=== PATIENT | female | born 1980 | race Caucasian/White ===

== ENCOUNTER 2020-09-07 02:53 | Emergency (ER) | payer MEDICAID ==
--- NOTE | 2020-09-07 03:10 | EDM.PDOC ---
<Lex Dennison - Last Filed: 09/07/20 04:33> ED HPI GENERAL MEDICAL PROBLEM - General Stated Complaint: MEDICAL [facility]IA [facility] Time Seen by Provider: 09/07/20 02:56 Source of Information: Reports: EMS History Limitations: Reports: Altered Mental Status, Intoxication - History of Present Illness INITIAL COMMENTS - FREE TEXT/NARRATIVE: Mary Beth is a 40-year-old female who was brought in by EMS for altered mental status and acute intoxication. Details are quite sketchy, however, it appears that the patient was found on the sidewalk outside of the hospital where somebody had found her and called law enforcement. Law enforcement in turn called EMS to bring her to the hospital. The patient admits to heavy alcohol use today but will not state what she has been drinking. She will not answer questions. She presents tachycardic and her altered state. Law enforcement did provide a name, birthdate, and address for the patient. No one else is accompanying her at this time. Left Abdomen Pain Score (Numeric/FACES): 4 - Related Data Allergies Allergy/AdvReac Type Severity Reaction Status Date / Time No Known Allergies Allergy Verified 09/07/20 03:04 Home Meds: Home Meds Cholecalciferol (Vitamin D3) [Vitamin D3] 2,000 unit PO DAILY 09/07/20 [History] Naltrexone 25 mg PO BID 09/07/20 [History] buPROPion HCL [Wellbutrin Xl] 300 mg PO DAILY 09/07/20 [History] ED ROS GENERAL - Review of Systems Review Of Systems: Unable To Obtain Reason Not Obtained: Patient is intoxicated and refuses to answer questions : Reports: Flank Pain (Left flank pain) - Physical Exam Exam: See Below Text/Narrative:: Patient repeatedly Stating she did not want to be touched came agitated when I approached to examine her. I was able to listen the heart and lungs. She has complained of left flank pain but no bruising was noticed. She does have mild tenderness to palpation of the left lower quadrant but no guarding. Exam Limited By: Intoxication General Appearance: Anxious, Mild Distress Eye Exam: Bilateral Eye: EOMI, PERRL Throat/Mouth: Normal Inspection, Normal Oropharynx, No Airway Compromise Head Exam: Atraumatic, Normocephalic Neck: Normal Inspection Respiratory/Chest: No Respiratory Distress, Lungs Clear, Normal Breath Sounds Cardiovascular: Normal Peripheral Pulses, Regular Rate, Rhythm, Tachycardia GI/Abdominal: Normal Bowel Sounds, Soft, Tender (Left lower quadrant tenderness). No: Guarding, Rigid, Rebound Neuro Exam (Abbreviated): Alert, No Motor/Sensory Deficits Extremities: Normal Inspection Psychiatric: Anxious, Tearful Skin Exam: Warm, Dry, Intact, Normal Color Course - Re-Assessments/Exams Free Text/Narrative Re-Assessment/Exam: 09/07/20 04:33 I reviewed the patient's labs showing a normal CBC and comprehensive metabolic profile. Her urinalysis is negative. Her urine drug screen is negative. Her ethanol level is 444. As there is no sober individual that is able to care for her we will have to watch her until she is sober later this morning and then she can be discharged back to her own care. 09/07/20 07:00 care of the patient will be turned over from Dr. Dennison to Dr. Acosta while awaiting for the patient to sober up at which point she can be discharged to her own self-care. Departure - Departure Disposition: Home, Self-Care 01 Clinical Impression: Alcohol intoxication Qualifiers: Complication of substance-induced condition: uncomplicated Qualified Code(s): F10.920 - Alcohol use, unspecified with intoxication, uncomplicated - Discharge Information Instructions: Binge-Drinking Information, Adult Referrals: PCP,None [Primary Care Provider] - Additional Instructions: Follow-up with your primary care as needed Sepsis Event Note (ED) - Evaluation Sepsis Screening Result: No Definite Risk <Juan M Acosta - Last Filed: 09/07/20 11:13> Course - Vital Signs Last Recorded V/S: Last Vital Signs Temp 97.3 F 09/07/20 02:59 Pulse 119 H 09/07/20 07:46 Resp 18 09/07/20 02:59 BP 118/77 09/07/20 07:46 Pulse Ox 95 09/07/20 07:46 - Orders/Labs/Meds Labs: Laboratory Tests 09/07/20 09/07/20 09/07/20 Range/Units 03:05 03:05 03:05 WBC 9.2 (4.5-11.0) K/uL RBC 4.47 (3.30-5.50) M/uL Hgb 14.1 (12.0-15.0) g/dL Hct 41.7 (36.0-48.0) % MCV 93 (80-98) fL MCH 32 H (27-31) pg MCHC 34 (32-36) % Plt Count 273 (150-400) K/uL Neut % (Auto) 57 (36-66) % Lymph % (Auto) 33 (24-44) % [place] % (Auto) 8 H (2-6) % Eos % (Auto) 1 L (2-4) % Baso % (Auto) 1 (0-1) % Sodium 144 (140-148) mmol/L Potassium 3.7 (3.6-5.2) mmol/L Chloride 104 (100-108) mmol/L Carbon Dioxide 25 (21-32) mmol/L Anion Gap 15.3 H (5.0-14.0) mmol/L BUN 8 (7-18) mg/dL Creatinine 0.7 (0.6-1.0) mg/dL Est Cr Clr Drug Dosing TNP Estimated GFR (MDRD) > 60 (>60) Glucose 96 (74-106) mg/dL Calcium 8.9 (8.5-10.1) mg/dL Total Bilirubin 0.3 (0.2-1.0) mg/dL AST 102 H (15-37) U/L ALT 75 (12-78) U/L Alkaline Phosphatase 119 H (46-116) U/L Total Protein 8.3 H (6.4-8.2) g/dL Albumin 3.9 (3.4-5.0) g/dL Globulin 4.4 H (2.3-3.5) g/dL Albumin/Globulin Ratio 0.9 L (1.2-2.2) Urine Color (YELLOW) Urine Appearance (CLEAR) Urine pH (5.0-8.0) Ur Specific [place] (1.008-1.030) Urine Protein (NEGATIVE) mg/dL Urine Glucose (UA) (NEGATIVE) mg/dL Urine Ketones (NEGATIVE) mg/dL Urine Occult Blood (NEGATIVE) Urine Nitrite (NEGATIVE) Urine Bilirubin (NEGATIVE) Urine Urobilinogen (0.2-1.0) EU/dL Ur Leukocyte Esterase (NEGATIVE) Urine RBC (0-5) Urine WBC (0-5) Ur Epithelial Cells Amorphous Sediment Urine Bacteria Urine Mucus Urine Opiates Screen (NEGATIVE) Ur Oxycodone Screen (NEGATIVE) Urine Methadone Screen (NEGATIVE) Ur Propoxyphene Screen (NEGATIVE) Ur Barbiturates Screen (NEGATIVE) Ur Tricyclics Screen (NEGATIVE) Ur Phencyclidine Scrn (NEGATIVE) Ur Amphetamine Screen (NEGATIVE) U Methamphetamines Scrn (NEGATIVE) Urine MDMA Screen (NEGATIVE) U Benzodiazepines Scrn (NEGATIVE) U Cocaine Metab Screen (NEGATIVE) U Marijuana (THC) Screen (NEGATIVE) Ethyl Alcohol 444 mg/dL 09/07/20 09/07/20 Range/Units 03:33 03:33 WBC (4.5-11.0) K/uL RBC (3.30-5.50) M/uL Hgb (12.0-15.0) g/dL Hct (36.0-48.0) % MCV (80-98) fL MCH (27-31) pg MCHC (32-36) % Plt Count (150-400) K/uL Neut % (Auto) (36-66) % Lymph % (Auto) (24-44) % [place] % (Auto) (2-6) % Eos % (Auto) (2-4) % Baso % (Auto) (0-1) % Sodium (140-148) mmol/L Potassium (3.6-5.2) mmol/L Chloride (100-108) mmol/L Carbon Dioxide (21-32) mmol/L Anion Gap (5.0-14.0) mmol/L BUN (7-18) mg/dL Creatinine (0.6-1.0) mg/dL Est Cr Clr Drug Dosing Estimated GFR (MDRD) (>60) Glucose (74-106) mg/dL Calcium (8.5-10.1) mg/dL Total Bilirubin (0.2-1.0) mg/dL AST (15-37) U/L ALT (12-78) U/L Alkaline Phosphatase (46-116) U/L Total Protein (6.4-8.2) g/dL Albumin (3.4-5.0) g/dL Globulin (2.3-3.5) g/dL Albumin/Globulin Ratio (1.2-2.2) Urine Color Yellow (YELLOW) Urine Appearance Clear (CLEAR) Urine pH 7.0 (5.0-8.0) Ur Specific [place] 1.010 (1.008-1.030) Urine Protein Negative (NEGATIVE) mg/dL Urine Glucose (UA) Negative (NEGATIVE) mg/dL Urine Ketones Negative (NEGATIVE) mg/dL Urine Occult Blood Negative (NEGATIVE) Urine Nitrite Negative (NEGATIVE) Urine Bilirubin Negative (NEGATIVE) Urine Urobilinogen 0.2 (0.2-1.0) EU/dL Ur Leukocyte Esterase Trace H (NEGATIVE) Urine RBC 0-5 (0-5) Urine WBC 0-5 (0-5) Ur Epithelial Cells Few Amorphous Sediment Not seen Urine Bacteria Few Urine Mucus Not seen Urine Opiates Screen Negative (NEGATIVE) Ur Oxycodone Screen Negative (NEGATIVE) Urine Methadone Screen Negative (NEGATIVE) Ur Propoxyphene Screen Negative (NEGATIVE) Ur Barbiturates Screen Negative (NEGATIVE) Ur Tricyclics Screen Negative (NEGATIVE) Ur Phencyclidine Scrn Negative (NEGATIVE) Ur Amphetamine Screen Negative (NEGATIVE) U Methamphetamines Scrn Negative (NEGATIVE) Urine MDMA Screen Negative (NEGATIVE) U Benzodiazepines Scrn Negative (NEGATIVE) U Cocaine Metab Screen Negative (NEGATIVE) U Marijuana (THC) Screen Negative (NEGATIVE) Ethyl Alcohol mg/dL Departure - Departure Time of Disposition: 11:13 Condition: Poor Sepsis Event Note (ED) - Focused Exam Vital Signs: Vital Signs Temp Pulse Resp BP Pulse Ox 09/07/20 07:46 119 H 118/77 95 09/07/20 02:59 97.3 F 134 H 18 145/98 H 97 - Assessment/Plan Plan: Assessment Acuity = acute Site and laterality = alcohol intoxication Etiology = EtOH Manifestations = none Location of injury = Home Lab values = CBC CMP urinalysis unremarkable urine drug screen was negative alcohol was 444 Plan After 8 hours in the emergency department she was arousable communicative asked if she wanted to go to [place] she declined she states her phone is in her car which she will call for a ride she is going to walk to her vehicle and call for a ride, follow-up primary care as needed This note was dictated using Versa voice recognition software please call with any questions on syntax or grammar.
== END 2020-09-07 11:21 | disposition home or self-care (01) ==
LOC: JP.ED 02:53
DX: F10.120 Alcohol abuse with intoxication, uncomplicated (principal); Z79.899 Other long term (current) drug therapy
CPT/HCPCS: 36415; 80053; 80305-QW; 80307; 81001; 85025; 99284

== ENCOUNTER 2020-10-30 02:24 | Emergency (ER) | payer MEDICAID ==
[2020-10-30] MEDS ORDERED: Ondansetron 4 MG Tab.DIS PO ONE (02:26)
--- NOTE | 2020-10-30 02:35 | EDM.PDOCBH ---
ED HPI GENERAL MEDICAL PROBLEM - General Chief Complaint: Behavioral/Psych Stated Complaint: MEDICAL VIA [facility] Time Seen by Provider: 10/30/20 02:25 Source of Information: Reports: Patient History Limitations: Reports: Intoxication - History of Present Illness INITIAL COMMENTS - FREE TEXT/NARRATIVE: Mary Beth is a 40-year-old female presenting to the ED via [facility] from [facility] in [place], [place] for alcohol intoxication. Apparently there was last call and the patient refused to leave. She had been drinking beer tonight. Law enforcement states that she was unable to identify who she was or where she lived. EMS was called and she was slow to answer questions for them. There is nobody else at the house where she resides they could care for her so they brought her to the ER for evaluation. Patient also states that she does not feel well but will not elaborate on what that means. She denies any nausea or vomiting. EMS reports that the patient was at the bar drinking by herself and would not give them her proper address. Apparently there is no one else at the house that could watch her. They did report in route the patient became agitated and was somewhat uncooperative. - Related Data Allergies Allergy/AdvReac Type Severity Reaction Status Date / Time No Known Allergies Allergy Verified 10/30/20 02:38 Home Meds: Home Meds Cholecalciferol (Vitamin D3) [Vitamin D3] 2,000 unit PO DAILY 09/07/20 [History] Naltrexone 25 mg PO BID 09/07/20 [History] buPROPion HCL [Wellbutrin Xl] 300 mg PO DAILY 09/07/20 [History] Past Medical History Psychiatric History: Reports: Depression Social & Family History - Caffeine Use Caffeine Use: Reports: Coffee ED ROS GENERAL - Review of Systems Review Of Systems: See Below Constitutional: Reports: No Symptoms HEENT: Reports: No Symptoms Respiratory: Reports: No Symptoms Cardiovascular: Reports: No Symptoms Endocrine: Reports: No Symptoms GI/Abdominal: Reports: No Symptoms : Reports: No Symptoms Musculoskeletal: Reports: No Symptoms Skin: Reports: No Symptoms Neurological: Reports: Confusion, Dizziness, Difficulty Walking Psychiatric: Reports: Agitation Hematologic/Lymphatic: Reports: No Symptoms Immunologic: Reports: No Symptoms ED EXAM, BEHAVIORAL HEALTH - Physical Exam Exam: See Below Exam Limited By: Intoxication General Appearance: No Apparent Distress, Lethargic Eye Exam: Bilateral Eye: EOMI, PERRL Nose: Normal Inspection, Normal Mucosa Throat/Mouth: Normal Inspection, Normal Oropharynx, Normal Voice, No Airway Compromise Head: Atraumatic, Normocephalic Neck: Normal Inspection, Supple, Full Range of Motion Respiratory/Chest: No Respiratory Distress, Lungs Clear, Normal Breath Sounds Cardiovascular: Normal Peripheral Pulses, Regular Rate, Rhythm, No Murmur, Tachycardia GI/Abdominal: Normal Bowel Sounds, Soft, Non-Tender Back Exam: Normal Inspection Neurological: No Motor/Sensory Deficits, Disoriented to Place, Slow Response to Commands, Other (Slow to answer questions and slurring of her words) Psychiatric: Agitated, Inattentive Skin Exam: Warm, Dry, Intact, Normal color COURSE, BEHAVIORAL HEALTH COMP - Course Vital Signs: Last Vital Signs Temp 35.7 C L 10/30/20 02:32 Pulse 112 H 10/30/20 02:32 Resp 16 10/30/20 02:32 BP 116/73 10/30/20 02:32 Pulse Ox 94 L 10/30/20 02:32 Orders, Labs, Meds: Laboratory Tests 10/30/20 10/30/20 10/30/20 Range/Units 02:35 02:35 02:35 WBC 4.0 L (4.5-11.0) K/uL RBC 4.12 (3.30-5.50) M/uL Hgb 13.4 (12.0-15.0) g/dL Hct 40.3 (36.0-48.0) % MCV 98 (80-98) fL MCH 33 H (27-31) pg MCHC 33 (32-36) % Plt Count 327 (150-400) K/uL Neut % (Auto) 45.2 (36-66) % Lymph % (Auto) 41.7 (24-44) % [place] % (Auto) 8.8 H (2-6) % Eos % (Auto) 1.3 L (2-4) % Baso % (Auto) 3.0 H (0-1) % Sodium 144 (140-148) mmol/L Potassium 3.5 L (3.6-5.2) mmol/L Chloride 103 (100-108) mmol/L Carbon Dioxide 27 (21-32) mmol/L Anion Gap 17.5 H (5.0-14.0) mmol/L BUN 5 L (7-18) mg/dL Creatinine 0.6 (0.6-1.0) mg/dL Est Cr Clr Drug Dosing 117.18 mL/min Estimated GFR (MDRD) > 60 (>60) Glucose 97 (74-106) mg/dL Calcium 8.7 (8.5-10.1) mg/dL Total Bilirubin 0.3 (0.2-1.0) mg/dL AST 37 (15-37) U/L ALT 53 (12-78) U/L Alkaline Phosphatase 87 (46-116) U/L Total Protein 7.9 (6.4-8.2) g/dL Albumin 4.2 (3.4-5.0) g/dL Globulin 3.7 H (2.3-3.5) g/dL Albumin/Globulin Ratio 1.1 L (1.2-2.2) Lipase 100 (73-393) U/L Urine Color (YELLOW) Urine Appearance (CLEAR) Urine pH (5.0-8.0) Ur Specific [place] (1.008-1.030) Urine Protein (NEGATIVE) mg/dL Urine Glucose (UA) (NEGATIVE) mg/dL Urine Ketones (NEGATIVE) mg/dL Urine Occult Blood (NEGATIVE) Urine Nitrite (NEGATIVE) Urine Bilirubin (NEGATIVE) Urine Urobilinogen (0.2-1.0) EU/dL Ur Leukocyte Esterase (NEGATIVE) Urine RBC (0-5) Urine WBC (0-5) Ur Epithelial Cells Amorphous Sediment Urine Bacteria Urine Mucus Urine Opiates Screen (NEGATIVE) Ur Oxycodone Screen (NEGATIVE) Urine Methadone Screen (NEGATIVE) Ur Propoxyphene Screen (NEGATIVE) Ur Barbiturates Screen (NEGATIVE) Ur Tricyclics Screen (NEGATIVE) Ur Phencyclidine Scrn (NEGATIVE) Ur Amphetamine Screen (NEGATIVE) U Methamphetamines Scrn (NEGATIVE) Urine MDMA Screen (NEGATIVE) U Benzodiazepines Scrn (NEGATIVE) U Cocaine Metab Screen (NEGATIVE) U Marijuana (THC) Screen (NEGATIVE) Ethyl Alcohol 458 mg/dL 10/30/20 10/30/20 Range/Units 05:04 05:04 WBC (4.5-11.0) K/uL RBC (3.30-5.50) M/uL Hgb (12.0-15.0) g/dL Hct (36.0-48.0) % MCV (80-98) fL MCH (27-31) pg MCHC (32-36) % Plt Count (150-400) K/uL Neut % (Auto) (36-66) % Lymph % (Auto) (24-44) % [place] % (Auto) (2-6) % Eos % (Auto) (2-4) % Baso % (Auto) (0-1) % Sodium (140-148) mmol/L Potassium (3.6-5.2) mmol/L Chloride (100-108) mmol/L Carbon Dioxide (21-32) mmol/L Anion Gap (5.0-14.0) mmol/L BUN (7-18) mg/dL Creatinine (0.6-1.0) mg/dL Est Cr Clr Drug Dosing mL/min Estimated GFR (MDRD) (>60) Glucose (74-106) mg/dL Calcium (8.5-10.1) mg/dL Total Bilirubin (0.2-1.0) mg/dL AST (15-37) U/L ALT (12-78) U/L Alkaline Phosphatase (46-116) U/L Total Protein (6.4-8.2) g/dL Albumin (3.4-5.0) g/dL Globulin (2.3-3.5) g/dL Albumin/Globulin Ratio (1.2-2.2) Lipase (73-393) U/L Urine Color Yellow (YELLOW) Urine Appearance Clear (CLEAR) Urine pH 6.0 (5.0-8.0) Ur Specific [place] <= 1.005 L (1.008-1.030) Urine Protein Negative (NEGATIVE) mg/dL Urine Glucose (UA) Negative (NEGATIVE) mg/dL Urine Ketones Negative (NEGATIVE) mg/dL Urine Occult Blood Negative (NEGATIVE) Urine Nitrite Negative (NEGATIVE) Urine Bilirubin Negative (NEGATIVE) Urine Urobilinogen 0.2 (0.2-1.0) EU/dL Ur Leukocyte Esterase Trace H (NEGATIVE) Urine RBC Not seen (0-5) Urine WBC 5-10 H (0-5) Ur Epithelial Cells Few Amorphous Sediment Not seen Urine Bacteria Many Urine Mucus Not seen Urine Opiates Screen Negative (NEGATIVE) Ur Oxycodone Screen Negative (NEGATIVE) Urine Methadone Screen Negative (NEGATIVE) Ur Propoxyphene Screen Negative (NEGATIVE) Ur Barbiturates Screen Negative (NEGATIVE) Ur Tricyclics Screen Negative (NEGATIVE) Ur Phencyclidine Scrn Negative (NEGATIVE) Ur Amphetamine Screen Negative (NEGATIVE) U Methamphetamines Scrn Negative (NEGATIVE) Urine MDMA Screen Negative (NEGATIVE) U Benzodiazepines Scrn Negative (NEGATIVE) U Cocaine Metab Screen Negative (NEGATIVE) U Marijuana (THC) Screen Negative (NEGATIVE) Ethyl Alcohol mg/dL Medications Discontinued Medications Generic Name Dose Route Start Last Admin Trade Name Olmanq PRN Reason Stop Dose Admin Ondansetron HCl 4 mg 10/30/20 02:26 Ondansetron 4 Mg Tab.Dis PO 10/30/20 02:27 ONETIME ONE Re-Assessment/Re-Exam: I reviewed the patient's labs showing a normal CBC with a leukocyte count of 4.0 and hematocrit of 40.3 and a hemoglobin of 13.4. Patient has a platelet count of 327,000. Her comprehensive metabolic panel is unremarkable. Her ethanol level is 458. At this time, the plan is to have her sleep off her intoxication and when she is sober in the morning she can be discharged to her own recognizance. Urinalysis was performed and shows 5-10 WBCs with slight leukocyte esterase. Nitrates negative. Many bacteria seen. Urine drug screen was negative. Patient is now ambulating without problems, is cognizant and back to her baseline. Departure - Departure Time of Disposition: 05:42 Disposition: Home, Self-Care 01 Clinical Impression: Alcohol intoxication Qualifiers: Complication of substance-induced condition: uncomplicated Qualified Code(s): F10.920 - Alcohol use, unspecified with intoxication, uncomplicated - Discharge Information Instructions: Alcohol Intoxication Referrals: PCP,None [Primary Care Provider] - Forms: ED Department Discharge Sepsis Event Note (ED) - Focused Exam Vital Signs: Vital Signs Temp Pulse Resp BP Pulse Ox 10/30/20 02:32 35.7 C L 112 H 16 116/73 94 L - Problem List & Annotations (1) Alcohol intoxication SNOMED Code(s): 28767370 Code(s): F10.929 - ALCOHOL USE, UNSPECIFIED WITH INTOXICATION, UNSPECIFIED Status: Acute Priority: High Current Visit: Yes Qualifiers: Complication of substance-induced condition: uncomplicated Qualified Code(s): F10.920 - Alcohol use, unspecified with intoxication, uncomplicated - Problem List Review Problem List Initiated/Reviewed/Updated: Yes
== END 2020-10-30 05:48 | disposition home or self-care (01) ==
LOC: JP.ED 02:24
DX: F10.129 Alcohol abuse with intoxication, unspecified (principal); Y90.8 Blood alcohol level of 240 mg/100 ml or more
CPT/HCPCS: 36415; 80053; 80305-QW; 80307; 81001; 83690; 85025; 99282; 99284

== ENCOUNTER 2024-01-30 17:25 | Emergency (ER) | payer OTHER, MEDICAID ==
[2024-01-30 19:41] LABS: BASOPHILS PERCENT AUTO 0.5 % (0.1-1.3); HEMATOCRIT 27.9 % (34.3-46.0); HEMOGLOBIN 9.8 g/dL (11.2-15.5); IMMATURE GRAN PERCENT AUTO 0.5 % (0.0-0.7); LYMPHOCYTES PERCENT AUTO 42.7 % (11.4-47.7); MEAN CORPUSCULAR HEMOGLOBIN 32.9 pg (31.6-35.5); MEAN CORPUSCULAR HGB CONC 35.1 g/dL (31.6-35.5); MEAN CORPUSCULAR VOLUME 93.6 fL (81.4-99.0); MONOCYTES PERCENT AUTO 9.5 % (3.3-12.6); NEUTROPHILS ABSOLUTE AUTO 0.99 K/uL (1.0-7.6); NEUTROPHILS PERCENT AUTO 46.8 % (40.0-78.1); PLATELET COUNT,PLT 206 K/uL (130-375); RED BLOOD CELL COUNT 2.98 M/uL (3.77-5.24); WHITE BLOOD CELL COUNT,WBC 2.1 K/uL (3.2-11.0)
[2024-01-30 19:42] LABS: BASOPHILS ABSOLUTE AUTO 0.01 K/uL (0.00-0.10); IMMATURE GRAN ABSOLUTE AUTO 0.01 K/uL (0.00-0.23)
[2024-01-30 19:49] LABS: APPEARANCE,URINE CLEAR (CLEAR); BILIRUBIN,URINE NEGATIVE (NEGATIVE); COLOR,URINE YELLOW (YELLOW); GLUCOSE,URINE NEGATIVE (NEGATIVE); KETONES,URINE NEGATIVE (NEGATIVE); LEUKOCYTE ESTERASE,URINE TRACE (NEGATIVE); NITRITE,URINE NEGATIVE (NEGATIVE); OCCULT BLOOD,URINE NEGATIVE (NEGATIVE); PH,URINE 7.5 (5.0-8.0); PROTEIN,URINE NEGATIVE (NEGATIVE); UROBILINOGEN,URINE 0.2 EU/dL (0.2-1.0)
[2024-01-30 19:54] LABS: AMORPHOUS SEDIMENT,URINE NOT SEEN; BACTERIA,URINE RARE; EPITHELIAL CELLS,URINE RARE; MUCUS,URINE NOT SEEN; RBC,URINE 0-5 (0-5); WBC,URINE 0-5 (0-5)
[2024-01-30 20:08] LABS: INFLUENZA A NAA NEGATIVE (NEGATIVE); INFLUENZA B NAA NEGATIVE (NEGATIVE); RESPIRATORY SYNCYTIAL VIR NAA NEGATIVE (NEGATIVE)
[2024-01-30 20:10] LABS: CORONAVIRUS COVID-19 NAA POSITIVE (NEGATIVE)
== END 2024-01-30 20:25 | disposition home or self-care (01) ==
LOC: JP.ED 17:25
DX: U07.1 COVID-19 (principal); Z87.891 Personal history of nicotine dependence
CPT/HCPCS: 0241U; 36415; 81001; 85025; 99283